=== PATIENT | female | born 1965 | race Caucasian/White ===

== ENCOUNTER 2017-01-04 11:22 | Emergency (ER) | payer SELFPAY ==
[~2017-01-04] VITALS: Ht 147.3 cm; Wt 69.9 kg
[2017-01-04] MEDS ORDERED: AMLODIPINE BESY10 MG PO (12:06)
[2017-01-04] MEDS ORDERED: OXYBUTYNIN CHLOR5 M1 PO (12:06)
[2017-01-04] MEDS ORDERED: ATENOLOL25 MG PO (12:07)
[2017-01-04] MEDS ORDERED: BENZONATATE100 MG PO (12:31)
[2017-01-04 12:34] LABS: MCH 29.8 PG (29.0-34.0); MCHC 33.4 G/DL (30.0-36.0); MCV 89.1 FL (83-99); MEAN PLAT.VOLUME 10.2 uM^3 (9.5-12.4); PLATELET COUNT 240 K/uL (156-360); RBC DIS.WIDTH-CV 12.9 % (11.8-14.6); RBC DIS.WIDTH-SD 41.2 % (39-53); RED BLOOD COUNT 4.94 M/uL (3.80-5.20); WHITE BLOOD COUNT 7.8 K/uL (4.1-10.2)
[2017-01-04 13:59] LABS: CHLORIDE 107 mEq/L (99-109); POTASSIUM 4.3 mEq/L (3.7-5.4); SODIUM 138 mEq/L (136-147)
[2017-01-04 14:01] LABS: GLUCOSE 109 mg/dL (70-99)
[2017-01-04 14:03] LABS: ANION GAP 8 MEQ/L (2-14); TOTAL BILIRUBIN 0.8 mg/dL (0.0-1.0)
[2017-01-04 14:05] LABS: ALKALINE PHOSPHATASE 74 IU/L (3-129); GFR ESTIMATE (CALCULATED) > 59 mL/min/
[2017-01-04 14:06] LABS: UREA NITROGEN (BUN) 13 mg/dL (9-23)
[2017-01-04 14:08] LABS: LIPASE 19 U/L (1.0-51.0)
[2017-01-04 14:11] LABS: ADD MIUA? YES; BILIRUBIN NEGATIVE; BLOOD NEGATIVE; COLOR YELLOW ((YELLOW)); GLUCOSE (STRIP) NEGATIVE; KETONES 5; LEUKOCYTES NEGATIVE; NITRITE NEGATIVE; PROTEIN (STRIP) NEGATIVE; SPECIFIC GRAVITY 1.014 (1.000-1.030); UROBILINOGEN 0.2 MG/DL (0.2-1.0)
[2017-01-04 14:14] LABS: QUANTITATIVE HCG < 4.0 MIU/ML
[2017-01-04 14:15] LABS: BACTERIA RARE /HPF; EPITHELIAL CELLS 2+ /HPF; HYALINE CASTS 0-5 /LPF; MUCUS TRACE /LPF; RED BLOOD CELLS 0-5 /HPF (0-5); WHITE BLOOD CELLS 0-5 /HPF (0-5)
[2017-01-04 16:09] VITALS: BP 158/87
== END 2017-01-04 16:09 | disposition home or self-care (01) ==
LOC: EME 11:22
PROVIDERS: Physician Assistant
DX: R19.7 Diarrhea, unspecified (principal); R10.32 Left lower quadrant pain; Z88.2 Allergy status to sulfonamides
CPT/HCPCS: 74177; 80053; 81003; 83690; 84702; 85027; 99281; 99284; J2405; J3010; J7030